=== PATIENT | female | born 1960 | race American Indian/Alaskan Native ===

== ENCOUNTER 2017-02-16 08:43 | Emergency (ER) | payer SELFPAY ==
[2017-02-16 09:17] VITALS: BP 132/81
[2017-02-16] MEDS ORDERED: NORCO 5/325 PO ONE (11:50)
[2017-02-16] MEDS ORDERED: NORCO 5/325 ONE (11:51)
--- NOTE | 2017-02-16 14:47 | XRay Report ---
FINAL REPORT PROCEDURE: XR KNEE 3V RT TECHNIQUE: Three views of the right knee are obtained HISTORY: RIGHT KNEE INJURY / PAIN COMPARISON: No prior studies are available for comparison. FINDINGS: Suprapatellar joint effusion is seen.There is no fracture or dislocation. No arthritic changes are seen. IMPRESSION: Joint effusion is seen.
--- NOTE | 2017-02-16 15:01 | Emergency Department Report ---
Entered by LOLIS STONER, acting as scribe for KENRICK NOEL NP. ED Head Trauma HPI - General Chief complaint: Extremity Injury, Lower Stated complaint: RT KNEE INJURY Time Seen by Provider: 02/16/17 10:44 Source: patient Mode of arrival: Wheelchair Limitations: No Limitations - History of Present Illness Initial comments: Patient is a 57 y.o. female who presents to [facility] for evaluation of constant, 7/10, progressive right knee pain that began yesterday while jogging. Pt notes that she awoke this morning with notably worsened, severe pain that was aggravated with any attempt to put pressure on the RLE or ambulate. She states that her pain was improved with ice and Aleve taken at approximately 0700 this morning. She reports that her pain is also alleviated with laying down. She does not report numbness or fever. No relief with ICE or Naprosyn Complaint: other (R knee pain) -: Gradual Mechanism of Injury: other (twisted knee when jogging ) Location: other (R knee ) Loss of Consciousness: no Consistency: constant Other Injuries: none Associated Symptoms: denies: syncope, weakness, tingling - Related Data Previous Rx's Medication Instructions Recorded Last Taken Type Acetaminophen/Codeine [Tylenol #3] 1 tab PO Q6H PRN #12 tab 02/16/17 Unknown Rx Ibuprofen [Motrin] 600 mg PO Q8H PRN #15 tablet 02/16/17 Unknown Rx Allergies/Adverse reactions: Allergies Allergy/AdvReac Type Severity Reaction Status Date / Time No Known Allergies Allergy Unverified 02/16/17 09:11 ED Review of Systems ROS: Positive for right knee pain Negative for numbness or fever Constitutional: denies: fever Musculoskeletal: as per HPI Neurological: denies: headache, weakness, numbness ED Past Medical Hx - Past Medical History Hx Arthritis: Yes - Surgical History Additional Surgical History: X 2 - Social History Smoking Status: Former Smoker Substance Use Type: Alcohol, Marijuana - Medications Home Medications: Home Medications Medication Instructions Recorded Confirmed Last Taken Type Acetaminophen/Codeine [Tylenol #3] 1 tab PO Q6H PRN #12 tab 02/16/17 Unknown Rx Ibuprofen [Motrin] 600 mg PO Q8H PRN #15 tablet 02/16/17 Unknown Rx ED Physical Exam - General Limitations: No Limitations General appearance: alert, in no apparent distress - Head Head exam: Present: atraumatic, normocephalic - Eye Eye exam: Present: normal appearance. Absent: conjunctival injection, nystagmus - ENT ENT exam: Present: normal exam, mucous membranes moist, normal external ear exam - Neck Neck exam: Present: normal inspection, full ROM - Respiratory Respiratory exam: Present: normal lung sounds bilaterally. Absent: respiratory distress, chest wall tenderness - Cardiovascular Cardiovascular Exam: Present: regular rate, normal rhythm. Absent: systolic murmur, diastolic murmur, rubs, gallop - GI/Abdominal GI/Abdominal exam: Present: soft, normal bowel sounds. Absent: tenderness - Extremities Exam Extremities exam: Present: tenderness, joint swelling. Absent: pedal edema, calf tenderness - Expanded Lower Extremity Exam Right Upper Leg exam: Present: normal inspection. Absent: tenderness Knee exam: Present: normal inspection, tenderness (to medial and lateral joint lines ), swelling. Absent: full ROM, abrasion, crepidus, dislocation, erythema , full knee extension Lower Leg exam: Present: normal inspection, full ROM Ankle exam: Present: normal inspection, full ROM Foot/Toe exam: Absent: normal inspection, tenderness, swelling, abrasion, ecchymosis, erythema Neuro vascular tendon exam: Present: no vascular compromise. Absent: pulse deficit Gait: Positive: antalgic - Back Exam Back exam: Present: normal inspection, full ROM. Absent: tenderness, CVA tenderness (R), CVA tenderness (L), muscle spasm, paraspinal tenderness, vertebral tenderness - Neurological Exam Neurological exam: Present: alert, oriented X3 - Skin Skin exam: Present: warm, dry, intact, normal color. Absent: rash ED Course Vital Signs 02/16/17 09:14 Temperature 98.5 F Pulse Rate 58 L Respiratory 16 Rate Blood Pressure 132/81 O2 Sat by Pulse 99 Oximetry - Reevaluation(s) Reevaluation #1: 02/16/17 13:02 XR called, aware awaiting XR report 02/16/17 14:13 XR called again, was told study was dictated, need to await report. 02/16/17 14:52 XR report available at this time. Reevaluation #2: 02/16/17 14:57 PT aware of her XR result and need for ortho F/U. PT has no questions at this time. Reevaluation #3: 02/16/17 15:31 PT placed in knee immobilizer by nursing staff. PT reports decrease in pain. - Pulse Oximetry Interpretation Digit-Finger Initial Pulse Oximetry Readin Actions Taken: none - Radiology Data Radiology results: report reviewed XR R knee- Supra patellar joint effusion - Differential Diagnosis strain, fracture, - NEXUS Criteria Focal neurological deficit present: No Midline spinal tenderness present: No Altered level of consciousness: No Intoxication present: No Distracting injury present: No NEXUS results: C-Spine can be cleared clinically by these results. Imaging is not required. Critical Care Time: No ED Disposition Clinical Impression: Joint effusion of knee Right knee pain Qualifiers: Chronicity: acute Qualified Code(s): M25.561 - Pain in right knee Disposition: TO HOME OR SELFCARE Is pt being admited?: No Does the pt Need Aspirin: No Condition: Stable Instructions: Knee Sprain (ED), Knee Effusion (ED), RICE Therapy (ED), Knee Immobilizer (ED) Additional Instructions: No driving or ETOH After taking Tylenol #3 Do not take Motrin with your Aleve Prescriptions: Acetaminophen/Codeine [Tylenol #3] 1 tab PO Q6H PRN #12 tab PRN Reason: Pain , Severe (7-10) Ibuprofen [Motrin] 600 mg PO Q8H PRN #15 tablet PRN Reason: Pain Referrals: PRIMARY CARE, [Primary Care Provider] - 3-5 Days WERO MARTIN MD [Staff Physician] - 3-5 Days Time of Disposition: 15:00 This documentation as recorded by the HERBIE cárdenas KELLY,accurately reflects the service I personally performed and the decisions made by SADIE aguilera TRACY M, NP.
== END 2017-02-16 15:49 | disposition home or self-care (01) ==
LOC: ED 08:43
DX: M25.461 Effusion, right knee (principal); M19.90 Unspecified osteoarthritis, unspecified site; F12.10 Cannabis abuse, uncomplicated; Z87.891 Personal history of nicotine dependence
CPT/HCPCS: 99283